=== PATIENT | female | born 1955 | race Hispanic/Latino ===

== ENCOUNTER 2018-12-15 16:01 | Emergency (ER) | payer OTHER ==
[2018-12-15 18:00] LABS: Absolute Lymphocytes (CBC) 2.2 K/uL (0.7-4.9); Absolute Monocytes 0.6 K/uL (0.1-1.3); Absolute Neutrophil 7.1 K/uL (1.8-8.0); Basophils % 0.4 % (0-1.3); Eosinophils % 1.5 % (0-4.4); Hematocrit 43.4 % (36.0-45.0); MPV 7.2 fL (7.6-11.3); Monocytes % 6.1 % (3.3-12.3); RBC Red Blood Cell Count 4.84 M/uL (3.86-4.86)
[2018-12-15 18:14] LABS: Albumin 3.9 g/dL (3.4-5.0); Bilirubin Direct 0.2 mg/dL (0-0.2); Bilirubin Total 0.7 mg/dL (0.2-1.0); Potassium 3.2 mmol/L (3.5-5.1); Protein, Total 8.2 g/dL (6.4-8.2)
--- NOTE | 2018-12-15 18:51 | RAD REPORT ---
EXAM DESCRIPTION: CT - Abdomen Pelvis W Contrast - 12/15/2018 6:42 pm CLINICAL HISTORY: Neck pain, abdominal pain, prior cholecystectomy COMPARISON: September 2016 TECHNIQUE: Biphasic, helical CT imaging of the abdomen and pelvis was performed following 100 ml non -ionic IV contrast. No oral contrast administered. All CT scans are performed using dose optimization technique as appropriate and may include automated exposure control or mA/KV adjustment according to patient size. FINDINGS: No suspicious findings in the lung bases. The liver, spleen, and pancreas show no suspicious findings. Liver does show fatty infiltration patte rn. Gallbladder is absent. No biliary tree dilatation. Symmetric renal function is seen with no hydronephrosis or suspicious renal mass. No pyelonephritis o r acute parenchymal process. Small renal cysts are present. Adrenal nodularity matches prior imaging. No urinary bladder abnormality. Uterus and ovaries show no suspicious findings. No dilated bowel loops or bowel wall thickening. Patient has prominent sigmoid diverticulosis but no diverticulitis findings. No appendicitis. No free air, free fluid or inflammatory stranding. No kelley ia, mass or bulky lymphadenopathy. Prominent disc and bony degenerative changes are present. These are similar to comparison. No acute f indings seen. IMPRESSION: No bowel obstruction, free air or acute findings. Nonacute findings are detailed in the body of the report and not substantially different from 2016.
--- NOTE | 2018-12-15 18:59 | EDPHYS ---
Physician Documentation [facility] Name: Roselia Mckinney Age: 63 yrs Sex: Female : 1955 Arrival Date: 12/15/2018 Time: 16:02 Bed 7 Private MD: ED Physician Satish Davenport HPI: 12/15 18:31 This 63 yrs old Female presents to ER via Ambulatory with complaints of pm1 Abdominal Pain, Neck Pain, >24Hrs Old. 18:31 The patient presents with abdominal pain that is diffuse. Onset: The symptoms/episode pm1 began/occurred 4 day(s) ago. The symptoms do not radiate. Associated signs and symptoms: Pertinent negatives: nausea, vomiting, and diarrhea, chest pain, dysuria, fever, shortness of breath. The symptoms are described as crampy. Modifying factors: The symptoms are alleviated by nothing, the symptoms are aggravated by nothing. Severity of pain: in the emergency department the pain is unchanged. The patient has not experienced similar symptoms in the past. The patient has not recently seen a physician. Patient reports that when the pain gets strong she tenses and clenches. it makes her feel like she is about to pass out. Two days ago she arched her head back when she was experiencing abdominal pain and it caused her to hurt her neck. Historical: - Allergies: 16:16 No Known Allergies; sv - PMHx: 16:16 Back pain; GERD; High Cholesterol; Hypertension; sv - PSHx: 16:16 Cholecystectomy; sv - Immunization history:: Adult Immunizations up to date. - Social history:: Smoking status: Patient/guardian denies using tobacco. - Ebola Screening: : Patient denies travel to an Ebola-affected area in the 21 days before illness onset. ROS: 18:31 Constitutional: Negative for fever, chills, and weight loss, Eyes: Negative for injury, pm1 pain, redness, and discharge, ENT: Negative for injury, pain, and discharge, Cardiovascular: Negative for chest pain, palpitations, and edema, Respiratory: Negative for shortness of breath, cough, wheezing, and pleuritic chest pain. 18:31 Back: Negative for injury and pain, : Negative for injury, bleeding, discharge, and swelling. 18:31 MS/Extremity: Negative for injury and deformity, Skin: Negative for injury, rash, and discoloration, Neuro: Negative for headache, weakness, numbness, tingling, and seizure. 18:31 Neck: Positive for pain with movement, pain, Negative for stiffness. 18:31 Abdomen/GI: Positive for abdominal pain, Negative for nausea, vomiting, and diarrhea. Exam: 18:31 Constitutional: This is a well developed, well nourished patient who is awake, alert, pm1 and in no acute distress. Head/Face: Normocephalic, atraumatic. Eyes: Pupils equal round and reactive to light, extra-ocular motions intact. Lids and lashes normal. Conjunctiva and sclera are non-icteric and not injected. Cornea within normal limits. Periorbital areas with no swelling, redness, or edema. ENT: Nares patent. No nasal discharge, no septal abnormalities noted. Tympanic membranes are normal and external auditory canals are clear. Oropharynx with no redness, swelling, or masses, exudates, or evidence of obstruction, uvula midline. Mucous membranes moist. Chest/axilla: Normal chest wall appearance and motion. Nontender with no deformity. No lesions are appreciated. Cardiovascular: Regular rate and rhythm with a normal S1 and S2. No gallops, murmurs, or rubs. Normal PMI, no JVD. No pulse deficits. Respiratory: Lungs have equal breath sounds bilaterally, clear to auscultation and percussion. No rales, rhonchi or wheezes noted. No increased work of breathing, no retractions or nasal flaring. 18:31 Back: No spinal tenderness. No costovertebral tenderness. Full range of motion. Skin: Warm, dry with normal turgor. Normal color with no rashes, no lesions, and no evidence of cellulitis. MS/ Extremity: Pulses equal, no cyanosis. Neurovascular intact. Full, normal range of motion. 18:31 Neck: External neck: tenderness, of the left trapezius, C-spine: vertebral tenderness, is not appreciated. 18:31 Abdomen/GI: Inspection: abdomen appears normal, Bowel sounds: normal, Palpation: soft, mild abdominal tenderness, in the left lower quadrant, mass, is not appreciated, rebound tenderness, is not appreciated. 18:31 Neuro: Orientation: is normal, Motor: is normal, moves all fours. Vital Signs: 16:16 BP 118 / 74; Pulse 85; Resp 16; Temp 98.7; Pulse Ox 97% ; Weight 88.45 kg; Height 5 ft. sv 3 in. (160.02 cm); Pain 8/10; 16:53 BP 126 / 72; Pulse 83; Pulse Ox 97% ; Pain 8/10; jp3 18:30 BP 122 / 65; Pulse 78; Resp 18; Pulse Ox 99% on R/A; aj1 16:16 Body Mass Index 34.54 (88.45 kg, 160.02 cm) sv MDM: 17:06 Patient medically screened. pm1 18:58 Data reviewed: vital signs. Data interpreted: Pulse oximetry: on room air is 97 %. pm1 Interpretation: normal. Counseling: I had a detailed discussion with the patient and/or guardian regarding: the historical points, exam findings, and any diagnostic results supporting the discharge/admit diagnosis, lab results, radiology results, the need for outpatient follow up, to return to the emergency department if symptoms worsen or persist or if there are any questions or concerns that arise at home. 12/15 17:19 Order name: Basic Metabolic Panel; Complete Time: 18:31 pm1 12/15 17:19 Order name: CBC with Diff; Complete Time: 18:31 pm1 12/15 17:19 Order name: Creatinine for Radiology; Complete Time: 18:31 pm1 12/15 17:19 Order name: Hepatic Function; Complete Time: 18:31 pm1 08 17:19 Order name: Lipase; Complete Time: 18:31 pm1 08 17:19 Order name: CT Abd/Pelvis - W/Contrast: Iv contrast only; Complete Time: 18:54 pm1 12/15 17:19 Order name: IV Saline Lock; Complete Time: 17:41 pm1 12/15 17:19 Order name: Labs collected and sent; Complete Time: 17:41 pm1 Administered Medications: No medications were administered Disposition: 12/15/18 18:59 Discharged to Home. Impression: Unspecified abdominal pain, Strain of muscle, fascia and tendon at neck level. - Condition is Stable. - Discharge Instructions: Abdominal Pain, Adult, Muscle Strain. - Prescriptions for Diclofenac Sodium 75 mg Oral Tablet Sustained Release - take 1 tablet by ORAL route 2 times per day; 30 tablet. - Medication Reconciliation Form, Thank You Letter, Antibiotic Education, Prescription Opioid Use form. - Follow up: Emergency Department; When: As needed; Reason: Worsening of condition. Follow up: Private Physician; When: 2 - 3 days; Reason: Recheck today's complaints, Continuance of care, Re-evaluation by your physician. - Problem is new. - Symptoms have improved. Addendum: 12/18/2018 07:15 Co-signature as Attending Physician, Satish Davenport MD I agree with the assessment and k dr plan of care. Signatures: Dispatcher [employer] EDTasia Grover RN RN aj1 Caro Ribeiro RN RN sv Satish Davenport MD MD kdr Devin Diaz RN RN ao Samuel Doan NP GASOLINE FINISHER pm1 Corrections: (The following items were deleted from the chart) 12/15 18:59 18:59 12/15/2018 18:59 Discharged to Home. Impression: Unspecified abdominal pain. pm1 Condition is Stable. Forms are Medication Reconciliation Form, Thank You Letter, Antibiotic Education, Prescription Opioid Use. Follow up: Emergency Department; When: As needed; Reason: Worsening of condition. Follow up: Private Physician; When: 2 - 3 days; Reason: Recheck today's complaints, Continuance of care, Re-evaluation by your physician. Problem is new. Symptoms have improved. pm1 19:13 18:59 12/15/2018 18:59 Discharged to Home. Impression: Unspecified abdominal pain; ao Strain of muscle, fascia and tendon at neck level. Condition is Stable. Discharge Instructions: Abdominal Pain, Adult, Muscle Strain. Forms are Medication Reconciliation Form, Thank You Letter, Antibiotic Education, Prescription Opioid Use. Follow up: Emergency Department; When: As needed; Reason: Worsening of condition. Follow up: Private Physician; When: 2 - 3 days; Reason: Recheck today's complaints, Continuance of care, Re-evaluation by your physician. Problem is new. Symptoms have improved. pm1
--- NOTE | 2018-12-15 18:59 | ER ---
Nurse's Notes [facility] Name: Roselia Mckinney Age: 63 yrs Sex: Female : 1955 Arrival Date: 12/15/2018 Time: 16:02 Bed 7 Private MD: Diagnosis: Unspecified abdominal pain;Strain of muscle, fascia and tendon at neck level Presentation: 12/15 16:14 Presenting complaint: Patient states: that she "passed out" on Tuesday and son thinks I sv had a seizure. Was not seen at the time. Reports neck pain and soft stools that are dark brown. "My body just trembles.". Transition of care: patient was not received from another setting of care. Onset of symptoms was December 12, 2018. Care prior to arrival: None. 16:14 Method Of Arrival: Ambulatory sv 16:14 Acuity: KEE 3 sv 17:00 Risk Assessment: Do you want to hurt yourself or someone else? Patient reports no aj1 desire to harm self or others. Initial Sepsis Screen: Does the patient meet any 2 criteria? No. Patient's initial sepsis screen is negative. Does the patient have a suspected source of infection? Yes: Acute abdominal pain. Triage Assessment: 17:00 General: Appears in no apparent distress. comfortable, Behavior is calm, cooperative, aj1 appropriate for age. Historical: - Allergies: 16:16 No Known Allergies; sv - PMHx: 16:16 Back pain; GERD; High Cholesterol; Hypertension; sv - PSHx: 16:16 Cholecystectomy; sv - Immunization history:: Adult Immunizations up to date. - Social history:: Smoking status: Patient/guardian denies using tobacco. - Ebola Screening: : Patient denies travel to an Ebola-affected area in the 21 days before illness onset. Screenin:00 Abuse screen: Denies threats or abuse. Denies injuries from another. Nutritional aj1 screening: No deficits noted. Tuberculosis screening: No symptoms or risk factors identified. 17:00 Fall Risk Fall in past 12 months (25 points). No secondary diagnosis (0 pts). No IV (0 aj1 pts). Ambulatory Aid- None/Bed Rest/Nurse Assist (0 pts). Gait- Normal/Bed Rest/Wheelchair (0 pts) Mental Status- Oriented to own ability (0 pts). Assessment: 17:00 General: Appears in no apparent distress. comfortable, Behavior is calm, cooperative, aj1 appropriate for age. Pain: Complains of pain in abdomen and left sternocleidomastoid Pain does not radiate. Pain currently is 9 out of 10 on a pain scale. Quality of pain is described as aching, Pain began 2-3 days ago. Neuro: Level of Consciousness is awake, alert, obeys commands, Oriented to person, place, time, situation. Cardiovascular: Patient's skin is warm and dry. Respiratory: Airway is patent Respiratory effort is even, unlabored, Respiratory pattern is regular, symmetrical. GI: Abdomen is non-distended, Bowel sounds present X 4 quads. Abd is soft and non tender X 4 quads. Reports lower abdominal pain, Patient currently denies diarrhea, nausea, vomiting. : No signs and/or symptoms were reported regarding the genitourinary system. EENT: No signs and/or symptoms were reported regarding the EENT system. Derm: No signs and/or symptoms reported regarding the dermatologic system. Musculoskeletal: No signs and/or symptoms reported regarding the musculoskeletal system. Circulation, motion, and sensation intact. 19:12 Reassessment: DC instructions given to patient. Patient agree with the POC and to ao follow up with PCP. Pt had no questions at this moment. Vital Signs: 16:16 BP 118 / 74; Pulse 85; Resp 16; Temp 98.7; Pulse Ox 97% ; Weight 88.45 kg; Height 5 ft. sv 3 in. (160.02 cm); Pain 8/10; 16:53 BP 126 / 72; Pulse 83; Pulse Ox 97% ; Pain 8/10; jp3 18:30 BP 122 / 65; Pulse 78; Resp 18; Pulse Ox 99% on R/A; aj1 16:16 Body Mass Index 34.54 (88.45 kg, 160.02 cm) sv ED Course: 16:02 Patient arrived in ED. as 16:16 Triage completed. sv 16:16 Arm band placed on. sv 16:54 Samuel Doan NP is PHCP. pm1 16:54 Satish Davenport MD is Attending Physician. pm1 17:00 No provider procedures requiring assistance completed. aj1 17:02 Tasia Mike, KEVIN is Primary Nurse. aj1 17:09 Bed in low position. Call light in reach. Side rails up X 1. Warm blanket given. Pillow jp3 given. Pulse ox on. NIBP on. 17:33 Radiology exam delayed due to lab results not completed at this time. (BUN/Creatinine). 2 18:[address] via wheelchair. nj 18:42 CT completed. Patient tolerated procedure well. Patient moved back from ND. nj 18:44 CT Abd/Pelvis - W/Contrast: Iv contrast only In Process Unspecified. EDMS 19:11 IV discontinued, intact, bleeding controlled, No redness/swelling at site. Pressure aj1 dressing applied. Administered Medications: No medications were administered Outcome: 18:59 Discharge ordered by MD. pm1 19:11 Discharged to home ambulatory. ao 19:11 Condition: stable 19:11 Discharge instructions given to patient. 19:13 Patient left the ED. ao Signatures: Dispatcher [employer] EDMS Tasia Mike RN RN aj1 Caro Ribeiro RN RN sv Martinez, Amelia as Ortiz, Alex, RN RN ao Marinas, Patrick, SAFETY TRAINER SAFETY TRAINER pm1 Bert Joyner Victoria 2 Salvador Chi jp3
[2018-12-15 19:18] VITALS: TEMP 98.7; O2SAT 97
[2018-12-15 19:19] VITALS: BP 126/72
== END 2018-12-15 19:13 | disposition home or self-care (01) ==
LOC: ER 16:01
DX: S16.1XXA Strain of muscle, fascia and tendon at neck level, initial encounter (principal); I10 Essential (primary) hypertension
CPT/HCPCS: 85025; 80048; 36415; 80076; 83690; 74177; 99284; Q9967

== ENCOUNTER 2022-10-09 17:01 | Emergency (ER) | payer MEDICARE ==
--- OUTSIDE RECORDS SUMMARY | 2022-10-09 17:04 | XMS REPORT | Continuity of Care Document ---
:1955 Author Organization [facility] t Address [address] [place] [address] Care Team Providers Name Role Phone Cesar Herzog Primary Care Physician Saul Aguila Attending Clinician Unavailable Omar BROWN, Maritza Reyes Attending Clinician Unavailable Only, Ang Db Test Attending Clinician Unavailable Madhavi Marcos Attending Clinician Trey BROWN, Taylor Attending Clinician Unavailable Bahman BROWN, Carol Attending Clinician Unavailable Lab, Adc Fam Pob I Attending Clinician Unavailable Saúl Diaz Attending Clinician SAÚL CEDENO Attending Clinician Unavailable Doctor Unassigned, [place] Attending Clinician Unavailable Payers Payer Name Policy Type Policy Number Effective Date Expiration Date [facility] [id number] 2021 (MEDICARE 00:00:00 REPLACEMENT HMO) Problems This patient has no known problems. Allergies, Adverse Reactions, Alerts Allergy Allergy Status Severity Reaction(s) Onset Inactive Treating Comm ents Source Name Type Date Date Clinician NO KNOWN Drug Active Univers ALLERGIE Class ity of S [facility] Social History Social Habit Start Date Stop Date Quantity Comments Source Exposure to Not sure [facility] SARS-CoV-2 (event) Medica l Branch Sex Assigned At [birth year] [facility] 00:00:00 00:00:00 [facility] Smoking Status Start Date Stop Date Source Unknown if ever smoked [facility] Medications This patient has no known medications. Procedures Procedure Date / Time Performed Performing Clinician [facility] e ASSIGNMENT OF BENEFITS 2021-05-21 15:15:16 Doctor Unassigned, No [facility] Name [facility] Branch Encounters Start End Encounter Admission Attending Care Care Encounter Source Date/Time Date/Time Type Type Clinicians Facility Department ID 2022-04-13 Outpatient SORAIDA Aguila [facility] [id number] Common 13:56:02 Saul [id number] [facility] 2022-04-23 2022-04-23 Outpatient [facility] [id number] Devoted 03:41:00 03:41:00 0715 [facility] Group 2021-07-26 2021-07-26 [facility] [id number] [facility] 08:00:00 08:00:00 1017 Medica l Group 2021-06-30 2021-06-30 Letter SOURAV Nelson [id number] Univers 00:00:00 00:00:00 (Out) Maritza POWER [id number] it y of HOSPITAL [id number] Eddi as [phone] [address] 2021-06-29 2021-06-29 Outpatient R [facility] [id number] Univers 10:30:00 10:30:00 ity of [facility] 2021-06-29 2021-06-29 Laboratory Only, Ang Db Test [facility] 1.2.8 40.114 [id number] Univers 09:54:10 10:09:10 Only [facility] [id number] ity [facility] [id number] Eddi as Brad?Blea [phone] [address] Medical Office Building 2021-06-15 2021-06-15 Telephone Taylor Yang [id number] Univers 00:00:00 00:00:00 TONO [id number] it y of HOSPITAL [id number] Eddi as [id number] [address] 2021-06-14 2021-06-14 Telephone SOURAV Ruggiero [id number] Univers 00:00:00 00:00:00 Carol POWER [id number] it y of HOSPITAL [id number] Eddi as [id number] [address] 2021-06-14 2021-06-14 Letter SOURAV Nelson [id number] Univers 00:00:00 00:00:00 (Out) Maritza POWER [id number] it y of [facility] [id number] Eddi as [phone] [address] 2021-06-13 2021-06-13 Letter SOURAV Nelson [id number] Univers 00:00:00 00:00:00 (Out) Maritza Amy JHAVERIY [id number] it y of [facility] [id number] Eddi as [phone] [address] 2021-06-12 2021-06-12 Laboratory Only, Ang Db Test [place] 1.2.8 40.114 [id number] Univers 10:56:58 11:06:58 Only Madhavi Freeman [facility] [id number] ity of [place] [id number] Eddi as Brad?Blea [phone] [facility] [address] [facility] 2021-06-12 2021-06-12 Outpatient R [facility] [id number] Univers 11:00:00 11:00:00 ity [facility] 2021-05-21 2021-05-21 Laboratory Lab, Adc Fam Pob I [place] 1.2. [id number] [id number] Univers 10:16:12 10:36:12 Only Saúl Cedeno [facility] [id number] ity of [place] [id number] Eddi as Professio [phone] Wy neil [facility] [address] One 2021-05-21 2021-05-21 Outpatient R WILIAN [facility] [id number] Univers 10:20:00 10:20:00 SAÚL [facility] 2021-05-21 2021-05-21 Orders Doctor BENJAMIN [id number] Univers 00:00:00 00:00:00 Only Unassigned, TONO [id number] ity of [place] [facility] [id number] Eddi as [phone] [facility] 009 Branch Results This patient has no known results.
[2022-10-09] MEDS ORDERED: DERMABOND SKIN ADHESIVE TOP ONE ×3 (18:07→19:19)
[2022-10-09] MEDS ORDERED: FENTANYL CITR 100 MCG/2 ML ONE (18:09)
[2022-10-09] MEDS ORDERED: TDAP (DIPHTH,PERTUSS(ACELL),TET VAC) 0.5 ML VIAL IMVAC ONE (18:09)
--- NOTE | 2022-10-09 18:39 | RAD REPORT ---
EXAM DESCRIPTION: CT - CTHCSPWOC - 10/09/2022 6:12 pm CLINICAL HISTORY: Trauma, head and neck injury. fall COMPARISON: Head Brain Wo Cont dated 08/30/2017 TECHNIQUE: Axial 5 mm thick images of the head were obtained. Axial 2 mm thick images of the cervical spine were obtained with sagittal and coronal reconstruction images generated and reviewed. All CT scans are performed using dose optimization technique as appropriate and may include automated exposure control or mA/KV adjustment according to patient size. FINDINGS: CT HEAD WITHOUT CONTRAST: No acute hemorrhage, hydrocephalus or extra-axial collection is identified.No areas of brain edema or midline shift. Remote left cerebellar infarct. Mild chronic small vessel ischemic changes. The paranasal sinuses and mastoids are clear.The calvarium is intact. CT CERVICAL SPINE WITHOUT CONTRAST: No fracture or subluxation.No prevertebral soft tissues swelling is identified. Multilevel cervical s pondylosis. Varying degrees of neural foraminal narrowing noted. Partial osseous fusion across C3-4 a nd C4-5 may be developmental. IMPRESSION: No acute intracranial or cervical spine findings. Remote left cerebellar infarct. This is, however, new since 08/30/2017.
--- NOTE | 2022-10-09 18:55 | RAD REPORT ---
EXAM DESCRIPTION: RAD - Knee Right 3 View - 10/09/2022 6:46 pm CLINICAL HISTORY: Pain COMPARISON: Knee Right 3 View dated 05/18/2016 FINDINGS/IMPRESSION: No acute fracture. No malalignment. Mild to moderate lateral compartment joint space narrowing and spurring. Mild medial compartment narrowing. Mild patellofemoral compartment dege nerative changes. Small nonspecific knee effusion.
--- NOTE | 2022-10-09 18:55 | RAD REPORT ---
EXAM DESCRIPTION: RAD - Hip Right 2 View - 10/09/2022 6:46 pm CLINICAL HISTORY: PAIN COMPARISON: No comparisons FINDINGS: No acute fracture. No malalignment. No significant focal degenerative changes. IMPRESSION: No acute osseous abnormality involving the the right hip.
--- NOTE | 2022-10-09 19:29 | EDPHYS ---
Physician Documentation [facility] Name: Roselia Mckinney Age: 67 yrs Sex: Female : 1955 Arrival Date: 10/09/2022 Time: 17:03 Bed 15 Private MD: ED Physician Daniel Lopez HPI: 10/09 17:53 This 67 yrs old Female presents to ER via Ambulatory with complaints of Fall snw Injury, Head Injury Without LOC-Adult. 17:53 Details of fall: The patient fell from an upright position, while walking. Onset: The snw symptoms/episode began/occurred suddenly, just prior to arrival. Associated injuries: The patient sustained injury to the head, contusion, right hip, right knee, contusion, ecchymosis, laceration, 3 cm(s). Severity of symptoms: At their worst the symptoms were moderate. The patient has not experienced similar symptoms in the past. It is unknown whether or not the patient has recently seen a physician. 18:00 No LOC. Pt states she left [employer], was not paying attention and tripped. Pt fell to snw right side. . Historical: - Allergies: 17:25 No Known Allergies; ll1 - PMHx: 17:25 Back pain; GERD; High Cholesterol; Hypertension; ll1 - Immunization history:: Adult Immunizations up to date, Client reports receiving the 2nd dose of the Covid vaccine. - Social history:: Smoking status: Patient denies any tobacco usage or history of. - Immunization history: Last tetanus immunization: - up to date. ROS: 17:53 Constitutional: Negative for fever, chills, and weight loss, Eyes: Negative for injury, snw pain, redness, and discharge, ENT: Negative for injury, pain, and discharge, Neck: Negative for injury, pain, and swelling, Cardiovascular: Negative for chest pain, palpitations, and edema, Respiratory: Negative for shortness of breath, cough, wheezing, and pleuritic chest pain, Abdomen/GI: Negative for abdominal pain, nausea, vomiting, diarrhea, and constipation, Back: Negative for injury and pain, : Negative for injury, bleeding, discharge, and swelling, Neuro: Negative for headache, weakness, numbness, tingling, and seizure, Psych: Negative for depression, anxiety, suicide ideation, homicidal ideation, and hallucinations. 17:53 MS/extremity: Positive for injury or acute deformity, contusion, ecchymosis, laceration, of the right knee. Exam: 17:56 Constitutional: This is a well developed, well nourished patient who is awake, alert, snw and in no acute distress. Head/Face: Normocephalic, atraumatic. ecchymosis to right ear pinna and post auricular area (possibly from eyeglass ear piece) Eyes: Pupils equal round and reactive to light, extra-ocular motions intact. Lids and lashes normal. Conjunctiva and sclera are non-icteric and not injected. Cornea within normal limits. Periorbital areas with no swelling, redness, or edema. ENT: Nares patent. No nasal discharge, no septal abnormalities noted. Tympanic membranes are normal and external auditory canals are clear. Oropharynx with no redness, swelling, or masses, exudates, or evidence of obstruction, uvula midline. Mucous membranes moist. Neck: Trachea midline, no thyromegaly or masses palpated, and no cervical lymphadenopathy. Supple, full range of motion without nuchal rigidity, or vertebral point tenderness. No Meningismus. Chest/axilla: Normal chest wall appearance and motion. Nontender with no deformity. No lesions are appreciated. Cardiovascular: Regular rate and rhythm with a normal S1 and S2. No gallops, murmurs, or rubs. Normal PMI, no JVD. No pulse deficits. Respiratory: Lungs have equal breath sounds bilaterally, clear to auscultation and percussion. No rales, rhonchi or wheezes noted. No increased work of breathing, no retractions or nasal flaring. Abdomen/GI: Soft, non-tender, with normal bowel sounds. No distension or tympany. No guarding or rebound. No evidence of tenderness throughout. Back: No spinal tenderness. No costovertebral tenderness. Full range of motion. 17:56 Neuro: Awake and alert, GCS 15, oriented to person, place, time, and situation. Cranial nerves II-XII grossly intact. Motor strength 5/5 in all extremities. Sensory grossly intact. Cerebellar exam normal. Normal gait. Psych: Awake, alert, with orientation to person, place and time. Behavior, mood, and affect are within normal limits. 17:56 Musculoskeletal/extremity: Extremities: grossly normal except: noted in the right hip: contusion, tenderness, noted in the right knee: contusion, laceration, tenderness, noted in the right ear pinna and postauricular area: contusion. 17:56 Skin: Appearance: normal except for affected area, injury, laceration(s), the wound is approximately 3 cm(s), of the right knee. Vital Signs: 17:32 BP 129 / 107; Pulse 102; Resp 18; Temp 98.6; Pulse Ox 98% ; Weight 90.72 kg; Height 5 ll1 ft. 1 in. (154.94 cm); Pain 5/10; 18:00 BP 121 / 101; Pulse 88; Resp 18; Pulse Ox 96% on R/A; ll1 17:32 Body Mass Index 37.79 (90.72 kg, 154.94 cm) ll1 [place] Coma Score: 17:35 Eye Response: spontaneous(4). Verbal Response: oriented(5). Motor Response: obeys ll1 commands(6). Total: 15. Trauma Score (Adult): 17:35 Eye Response: spontaneous(1); Verbal Response: oriented(1); Motor Response: obeys ll1 commands(2); Systolic BP: > 89 mm Hg(4); Respiratory Rate: 10 to 29 per min(4); [place] Score: 15; Trauma Score: 12 Laceration: 19:25 Wound Repair of 5cm ( 2.0in ) subcutaneous laceration to right knee. Skin/tissue flap snw noted.. Distal neuro/vascular/tendon intact. Anesthesia: Local anesthetic administered with 0 mls of 1% lidocaine. Wound prep: Extensive cleansing with hibiclenz by nurse. Skin closed with 1-0 Adhesive skin closure using Dermabond. Dressed with non-adherent dressing. Patient tolerated well. MDM: 17:33 Patient medically screened. snw 19:06 Data reviewed: vital signs, nurses notes. Response to treatment: the patient's symptoms snw have mildly improved after treatment. Special discussion: I discussed in detail with the patient the higher chance of wound infection based on his presenting history. Based on the history and exam findings, there is no indication for further emergent testing or inpatient evaluation. 10/09 17:48 Order name: Hip Right 2 View XRAY; Complete Time: 19:00 snw 10/09 17:48 Order name: Knee Right 3 View XRAY; Complete Time: 19:00 snw 10/09 17:48 Order name: Wound Care; Complete Time: 18:42 snw 10/09 17:48 Order name: CT Head C Spine; Complete Time: 18:41 snw 10/09 17:48 Order name: Dermabond; Complete Time: 18:50 snw 10/09 17:48 Order name: Knee Immobilizer; Complete Time: 19:53 snw Administered Medications: 18:34 Drug: fentaNYL (PF) 25 mcg {Note: rass 0, pain 5/10.} Route: IM; Site: right vastus ll1 lateralis; 18:34 Drug: Tetanus-Diphtheria Toxoid Adult 0.5 ml {Radiology Ct Technologist: [email or web address] Exp: ll1 04/23/2023. Lot #: [id number]. } Route: IM; Site: right deltoid; Disposition: 10/10 07:02 Co-signature as Attending Physician, Daniel Lopez MD. rn Disposition Summary: 10/09/22 19:29 Discharge Ordered Location: Home snw Condition: Stable snw Diagnosis - Fall on same level from slipping, tripping and stumbling with subsequent striking snw against unspecified object, initial encounter - Contusion of right knee snw - Skin tear snw - Unspecified injury of head, initial encounter snw Followup: snw - With: Emergency Department - When: As needed - Reason: Worsening of condition, Re-evaluation by your physician Followup: snw - With: Private Physician - When: 2 - 3 days - Reason: Recheck today's complaints, Continuance of care, Re-evaluation by your physician Discharge Instructions: - Discharge Summary Sheet snw - Tissue Adhesive Wound Care snw - Head Injury, Adult snw - Fall Prevention in the Home, Adult snw - How to Use a Knee Immobilizer snw - Skin Tear snw - Chronic Knee Pain, Adult snw Forms: - Medication Reconciliation Form snw - Thank You Letter snw - Antibiotic Education snw - Prescription Opioid Use snw - Work release form snw Prescriptions: - Mobic 7.5 mg Oral Tablet - take 1 tablet by ORAL route once daily take with food; 20 tablet; Refills: 0, snw Product Selection Permitted - Tramadol 50 mg Oral Tablet - take 1 tablet by ORAL route every 8 hours as needed; 12 tablet; Refills: 0, snw Product Selection Permitted Signatures: Dispatcher [employer] EDSabrina Shepard, INSPECTOR PRECISION-C INSPECTOR PRECISION-Csnw Daniel Lopez MD MD rn Cinthia Fajardo RN RN ll1
--- NOTE | 2022-10-09 19:29 | ER ---
Nurse's Notes [facility] Name: Roselia Mckinney Age: 67 yrs Sex: Female : 1955 Arrival Date: 10/09/2022 Time: 17:03 Bed 15 Private MD: Diagnosis: Fall on same level from slipping, tripping and stumbling with subsequent striking against unspecified object, initial encounter;Contusion of right knee;Skin tear;Unspecified injury of head, initial encounter Presentation: 10/09 17:25 Ebola Screen: Patient denies travel to an Ebola-affected area in the 21 days before ll1 illness onset. Risk Assessment: Do you want to hurt yourself or someone else? Patient reports no desire to harm self or others. 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 No LOC, ll1 states no blood thinners. R sided head pain, R ear abrasion, R arm pain,and R hip pain since. Coronavirus screen: Vaccine status: Patient reports receiving the 2nd dose of the covid vaccine. Client denies travel out of the [place] in the last 14 days. At this time, the client does not indicate any symptoms associated with coronavirus-19. Initial Sepsis Screen: Does the patient meet any 2 criteria? No. Patient's initial sepsis screen is negative. Does the patient have a suspected source of infection? Yes: Bone or joint infection. Onset of symptoms was October 09, 2022. 17:32 Method Of Arrival: Ambulatory [facility] 17:36 Care prior to arrival: None. Mechanism of Injury: Fall. Trauma event details: Injury ll1 occurred in the [facility]. Triage Assessment: 17:33 General: Appears uncomfortable, Behavior is calm, cooperative, appropriate for age. ll1 Pain: Complains of pain in R hip Pain currently is 5 out of 10 on a pain scale. Quality of pain is described as aching, throbbing, Pain began 3 hours ago. Neuro: Reports headache. Derm: abrasion noted behind R ear. No active bleeding Reports pain. Musculoskeletal: Reports pain in pelvis and right arm. Injury Description: Bruise. Trauma Activation: Not Applicable Physician: ED Physician; Name: ; Notified At: ; Arrived At: Physician: General Surgeon; Name: ; Notified At: ; Arrived At: Physician: Radiology; Name: ; Notified At: ; Arrived At: Physician: Respiratory; Name: ; Notified At: ; Arrived At: Physician: Lab; Name: ; Notified At: ; Arrived At: Historical: - Allergies: 17:25 No Known Allergies; ll1 - PMHx: 17:25 Back pain; GERD; High Cholesterol; Hypertension; ll1 - Immunization history:: Adult Immunizations up to date, Client reports receiving the 2nd dose of the Covid vaccine. - Social history:: Smoking status: Patient denies any tobacco usage or history of. - Immunization history: Last tetanus immunization: - up to date. Screenin:35 [facility] ED Fall Risk Assessment (Adult) Score/Fall Risk Level 0 - 2 = Low Risk ll1 Oriented to surroundings, Maintained a safe environment, Educated pt \T\ family on fall prevention, incl call for assistance when getting out of bed, Hourly rounding (assess needs \T\ fall precautionary measures) done. Abuse screen: Denies threats or abuse. Nutritional screening: No deficits noted. Tuberculosis screening: No symptoms or risk factors identified. Primary Survey: 17:35 NO uncontrolled hemorrhage observed. A: The client is awake and alert. The airway is ll1 patent. Breathing/Chest: Spontaneous respiratory effort, equal unlabored respirations, breath sounds clear bilaterally, regular pattern, symmetrical chest rise and fall. Circulation: No external hemorrhage present. Regular and strong central pulse, skin warm/dry/normal color. Disability Client is alert. Exposure/Environment: There is no evidence of uncontrolled external bleeding. 19:53 Reassessment Breathing: Spontaneous respiratory effort, equal unlabored respirations, aa9 breath sounds clear bilaterally, regular pattern with symmetrical chest rise and fall. Assessment: 18:00 Reassessment: to CT via stretcher. ll1 18:44 Reassessment: No changes from previously documented assessment. Patient and/or family ll1 updated on plan of care and expected duration. Pain level reassessed. Patient is alert, oriented x 3, equal unlabored respirations, skin warm/dry/pink. 19:18 General: Appears in no apparent distress. comfortable, obese, Behavior is calm, aa9 cooperative, appropriate for age. Pain: Complains of pain in right knee. Neuro: Level of Consciousness is awake, alert, obeys commands, Oriented to person, place, time, situation. Cardiovascular: Patient's skin is warm and dry. Respiratory: Airway is patent Respiratory effort is even, unlabored. GI: No signs and/or symptoms were reported involving the gastrointestinal system. : No signs and/or symptoms were reported regarding the genitourinary system. EENT: No signs and/or symptoms were reported regarding the EENT system. Derm: Wound noted right knee Wound is laceration Other: derma solorio applied to affected area. Vital Signs: 17:32 BP 129 / 107; Pulse 102; Resp 18; Temp 98.6; Pulse Ox 98% ; Weight 90.72 kg; Height 5 ll1 ft. 1 in. (154.94 cm); Pain 5/10; 18:00 BP 121 / 101; Pulse 88; Resp 18; Pulse Ox 96% on R/A; ll1 17:32 Body Mass Index 37.79 (90.72 kg, 154.94 cm) ll1 [place] Coma Score: 17:35 Eye Response: spontaneous(4). Verbal Response: oriented(5). Motor Response: obeys ll1 commands(6). Total: 15. Trauma Score (Adult): 17:35 Eye Response: spontaneous(1); Verbal Response: oriented(1); Motor Response: obeys ll1 commands(2); Systolic BP: > 89 mm Hg(4); Respiratory Rate: 10 to 29 per min(4); [place] Score: 15; Trauma Score: 12 ED Course: 17:03 Patient arrived in ED. jj6 17:10 Sabrina Ba FNP-C is [facility]. snw 17:10 Daniel Lopez MD is Attending Physician. snw 17:25 Cinthia Fajardo, KEVIN is Primary Nurse. ll1 17:25 Triage completed. ll1 17:25 Arm band placed on Patient placed in an exam room, on a stretcher. ll1 17:35 Patient has correct armband on for positive identification. Bed in low position. Client ll1 placed on continuous cardiac and pulse oximetry monitoring. NIBP monitoring applied. 17:35 Patient maintains SpO2 saturation greater than 95% on room air. ll1 17:36 Thermoregulation: warm blanket given to patient. ll1 18:14 CT Head C Spine In Process Unspecified. EDMS 18:40 Wound care: to abrasion, located on right ear was cleaned with Hibiclens, Patient ll1 tolerated well. 18:44 Wound care: to laceration located on right knee was cleaned with Hibiclens, Patient ll1 tolerated well. 18:48 Hip Right 2 View XRAY In Process Unspecified. EDMS 18:48 Knee Right 3 View XRAY In Process Unspecified. EDMS 19:53 No provider procedures requiring assistance completed. Patient did not have IV access aa9 during this emergency room visit. Administered Medications: 18:34 Drug: fentaNYL (PF) 25 mcg {Note: rass 0, pain 5/10.} Route: IM; Site: right vastus ll1 lateralis; 18:34 Drug: Tetanus-Diphtheria Toxoid Adult 0.5 ml {Managing Partner [employer]: [employer] ([employer] Exp: ll1 04/23/2023. Lot #: [id number]. } Route: IM; Site: right deltoid; Medication: 18:36 Vaccine Information Statement (VIS) provided today. Questions and/or concerns 1 addressed. VIS edition date: May 15, 2021. Outcome: 19:29 Discharge ordered by . w 19:53 Discharged to home via wheelchair, with family. aa9 19:53 Condition: stable 19:53 Discharge instructions given to patient, Instructed on discharge instructions, follow up and referral plans. medication usage, Demonstrated understanding of instructions, follow-up care, medications, Prescriptions given X 2. 19:53 Patient left the ED. aa9 Signatures: Dispatcher [employer] EDMS Sabrina Ba FNP-C [employer]-Cinthia Pinto RN RN ll1 Thuy Sanches jj6 Malia Lai, RN RN aa9
[2022-10-09 19:58] VITALS: TEMP 98.6
[2022-10-09 20:00] VITALS: BP 121/101; O2SAT 96
== END 2022-10-09 19:53 | disposition home or self-care (01) ==
LOC: ER 17:01
DX: S09.90XA Unspecified injury of head, initial encounter (principal); S81.011A Laceration without foreign body, right knee, initial encounter; W01.10XA Fall on same level from slipping, tripping and stumbling with subsequent striking against unspecified object, initial encounter; Z23 Encounter for immunization; I10 Essential (primary) hypertension
CPT/HCPCS: 70450; 72125; 73502; 73562; 90471; 96372; 99284; J3010